=== PATIENT | female | born 1990 | race Two or more races ===

== ENCOUNTER 2023-03-01 13:00 | Emergency (ER) | payer BC, OTHER ==
[~2023-03-01] VITALS: Ht 147.3 cm; Wt 56.7 kg
[2023-03-01] MEDS ORDERED: IBUP-1955 PO (15:10)
[2023-03-01 15:54] VITALS: BP 120/88; TEMP 98; O2SAT 100
== END 2023-03-01 15:54 | disposition home or self-care (01) ==
LOC: ER 13:00
DX: S90.32XA Contusion of left foot, initial encounter (principal); S90.31XA Contusion of right foot, initial encounter; W20.8XXA Other cause of strike by thrown, projected or falling object, initial encounter; Y93.89 Activity, other specified; Y92.89 Other specified places as the place of occurrence of the external cause; Y99.8 Other external cause status
CPT/HCPCS: 73630-TC